=== PATIENT | female | born 1985 | race Caucasian/White ===

== ENCOUNTER 2016-11-02 13:49 | Emergency (ER) | payer OTHER ==
[~2016-11-02] VITALS: Ht 162.6 cm; Wt 54.5 kg
[2016-11-02 15:00] LABS: EOSINOPHIL (%) 0.3 % (0-5); HEMATOCRIT 37.3 % (36.0-46.0); IMMATURE GRANULOCYTE (%) 0.5 % (0.0-0.7); INSTRUMENT ABS NEUTROPHIL CT 2.6 K/uL; LYMPHOCYTE COUNT 0.9 K/uL (1.0-2.8); MCH 31.8 PG (29.0-34.0); MCHC 34.6 G/DL (30.0-36.0); MCV 91.9 FL (83-99); MEAN PLAT.VOLUME 9.2 uM^3 (9.5-12.4); MONOCYTE (%) 3.8 % (3-12); MONOCYTE COUNT 0.1 K/uL (0-0.8); NEUTROPHIL (%) 70.5 % (45-76); NEUTROPHIL COUNT 2.6 K/uL (1.8-6.4); PLATELET COUNT 185 K/uL (156-360); RBC DIS.WIDTH-CV 12.4 % (11.8-14.6); RED BLOOD COUNT 4.06 M/uL (3.80-5.20); WHITE BLOOD COUNT 3.7 K/uL (4.1-10.2)
[2016-11-02 15:09] LABS: CHLORIDE 98 mEq/L (99-109); POTASSIUM 3.6 mEq/L (3.7-5.4); SODIUM 136 mEq/L (136-147)
[2016-11-02 15:11] LABS: GLUCOSE 93 mg/dL (70-99)
[2016-11-02 15:12] LABS: ANION GAP 14 MEQ/L (2-14)
[2016-11-02 15:14] LABS: SERUM ETHYL ALCOHOL < 10 mg/dL
[2016-11-02 15:15] LABS: GFR ESTIMATE (CALCULATED) > 59 mL/min/
[2016-11-02 15:16] LABS: UREA NITROGEN (BUN) 7 mg/dL (9-23)
[2016-11-02 15:23] LABS: QUANTITATIVE HCG < 4.0 MIU/ML
[2016-11-02] MEDS ORDERED: LIBRIUM25 MG PO (16:05)
[2016-11-02] MEDS ORDERED: THIAMINE HCL100 MG PO (16:05)
[2016-11-02] MEDS ORDERED: MIRALAX17 GM PO (16:07)
[2016-11-02 16:36] VITALS: BP 139/93
== END 2016-11-02 16:38 | disposition home or self-care (01) ==
LOC: EME 13:49
PROVIDERS: Emergency Medicine
DX: F10.239 Alcohol dependence with withdrawal, unspecified (principal); Y90.0 Blood alcohol level of less than 20 mg/100 ml
CPT/HCPCS: 80048; 81003; 84702; 85025; 99281; 99285; G0480; J3411; J3475

== ENCOUNTER 2017-01-26 21:04 | Emergency (ER) | payer OTHER ==
[~2017-01-26] VITALS: Ht 162.6 cm; Wt 65.9 kg
[~2017-01-26 21:04] MED LIST: COLACE100 MG PO; LIBRIUM25 MG PO; MIRALAX17 GM PO; THIAMINE HCL100 MG PO
[2017-01-26] MEDS ORDERED: LORAZEPAM1 MG PO (21:11)
[2017-01-26] MEDS ORDERED: ESCITALOPRAM OX20 MG PO (21:11)
[2017-01-26 21:23] LABS: EOSINOPHIL (%) 0.5 % (0-5); HEMATOCRIT 39.6 % (36.0-46.0); IMMATURE GRANULOCYTE (%) 0.3 % (0.0-0.7); INSTRUMENT ABS NEUTROPHIL CT 1.2 K/uL; LYMPHOCYTE COUNT 2.4 K/uL (1.0-2.8); MCH 33.7 PG (29.0-34.0); MCHC 34.8 G/DL (30.0-36.0); MCV 96.6 FL (83-99); MEAN PLAT.VOLUME 9.3 uM^3 (9.5-12.4); MONOCYTE (%) 7.4 % (3-12); MONOCYTE COUNT 0.3 K/uL (0-0.8); NEUTROPHIL (%) 29.6 % (45-76); NEUTROPHIL COUNT 1.2 K/uL (1.8-6.4); PLATELET COUNT 197 K/uL (156-360); RBC DIS.WIDTH-CV 15.6 % (11.8-14.6); RBC DIS.WIDTH-SD 55.6 % (39-53); WHITE BLOOD COUNT 3.9 K/uL (4.1-10.2)
[2017-01-26 21:31] LABS: CHLORIDE 103 mEq/L (99-109); POTASSIUM 3.7 mEq/L (3.7-5.4); SODIUM 145 mEq/L (136-147)
[2017-01-26 21:32] LABS: MAGNESIUM 2.7 mg/dL (1.3-2.7)
[2017-01-26 21:34] LABS: GLUCOSE 102 mg/dL (70-99)
[2017-01-26 21:35] LABS: ANION GAP 19 MEQ/L (2-14)
[2017-01-26 21:36] LABS: SERUM ETHYL ALCOHOL 379 mg/dL; TOTAL BILIRUBIN 0.6 mg/dL (0.0-1.0)
[2017-01-26 21:37] LABS: GFR ESTIMATE (CALCULATED) > 59 mL/min/
[2017-01-26 21:38] LABS: ALKALINE PHOSPHATASE 61 IU/L (3-129)
[2017-01-26 21:39] LABS: UREA NITROGEN (BUN) 3 mg/dL (9-23)
[2017-01-26 21:41] LABS: SALICYLATE < 5.0 MG/DL (15-30)
[2017-01-26 22:58] LABS: ADD MIUA? YES; BILIRUBIN NEGATIVE; BLOOD NEGATIVE; COLOR YELLOW ((YELLOW)); GLUCOSE (STRIP) 50; KETONES 5; LEUKOCYTES NEGATIVE; NITRITE NEGATIVE; PROTEIN (STRIP) 100; SPECIFIC GRAVITY 1.009 (1.000-1.030); UROBILINOGEN 0.2 MG/DL (0.2-1.0)
[2017-01-26 23:01] LABS: BACTERIA RARE /HPF; EPITHELIAL CELLS RARE /HPF; MUCUS TRACE /LPF; UCUL ADDED? NO; WHITE BLOOD CELLS 0-5 /HPF (0-5)
[2017-01-26 23:09] LABS: AMPHETAMINE NEGATIVE (500 ng/mL); BARBITURATES NEGATIVE (200 ng/mL); BENZODIAZEPINES PRESUMPTIVE POSITIVE (150 ng/mL); COCAINE NEGATIVE (150 ng/mL); INTERNAL CONTROLS VALID? YES; METHADONE NEGATIVE (200 ng/mL); METHAMPHETAMINE NEGATIVE (500 ng/mL); OPIATES (MORPHINE) NEGATIVE (100 ng/mL); OXYCODONE NEGATIVE (100 ng/mL); PHENCYCLIDINE NEGATIVE (25 ng/mL); PROPOXYPHENE NEGATIVE (300 ng/mL); THC CANNABINOIDS NEGATIVE (50 ng/mL); TRICYCLIC ANTIDEPRESSANTS NEGATIVE (300 ng/mL)
[2017-01-26 23:11] LABS: ADD MEDTOX COMMENT Y
[2017-01-26] MEDS ORDERED: COLACE100 MG PO ×2 (23:46→23:52)
[2017-01-26] MEDS ORDERED: BENADRYL25 MG PO (23:47)
[2017-01-26] MEDS ORDERED: BENADRYL50 MG PO (23:51)
[2017-01-27 04:17] LABS: BENZODIAZEPINES QUANT VALUE 0 NG/ML; BENZODIAZEPINES, URINE SCREEN Negative (200 ng/mL)
[2017-01-27] MEDS ORDERED: THIAMINE HCL100 MG PO (04:40)
[2017-01-27] MEDS ORDERED: LIBRIUM25 MG PO (04:40)
[2017-01-27 04:50] VITALS: BP 132/100
== END 2017-01-27 04:51 | disposition home or self-care (01) ==
LOC: EME 21:04
PROVIDERS: Emergency Medicine
DX: F10.129 Alcohol abuse with intoxication, unspecified (principal); Y90.8 Blood alcohol level of 240 mg/100 ml or more
CPT/HCPCS: 80053; 81003; 83735; 84702; 84999; 85025; 93005; 99281; 99285; G0480; J2060; J7030